=== PATIENT | male | born 2005 | race Two or more races ===

== ENCOUNTER 2024-03-17 04:12 | Emergency (ER) | payer BC, MEDICAID, SELFPAY ==
[2024-03-17 04:16] VITALS: PULSE 87; RESP 16; O2SAT 100; BMI 43.8
--- NOTE | 2024-03-17 04:17 | EKG_ITS ---
[facility] Test Date: 2024-03-17 Pat Name: CARMENZA HOPSON Department: Room: - Gender: Male [employer]: : 2005 Requested By: Shan Gaming Order Number: [id number] Reading MD: Shan Gaming Measurements Intervals [place] Rate: 82 P: 35 [place]: 151 QRS: 57 QRSD: 95 T: 43 QT: 366 QTc: 428 Interpretive Statements SINUS RHYTHM NONSPECIFIC T-WAVE ABNORMALITY No previous ECG available for comparison /store/S0/[id number]
[2024-03-17 04:19] VITALS: BP 140/81; PULSE 84; RESP 18; TEMP 36.7; O2SAT 100
--- NOTE | 2024-03-17 04:48 | PD.EDRME ---
Rapid Medical Screening Exam RME Arrival date/time: 03/17/24 04:12 18M with history of anxiety and marijuana use (2 days ago) presents to ED with 1 day of SOB. Patient denies URI symptoms. Patient doesn't think this is due to his anxiety or drug use even though he states the shot he got last time really helped. It was Ativan. Chief Complaint: Anxiety Vital signs: Vital Signs Temperature 98.1 F 03/17/24 04:19 Pulse Rate 84 03/17/24 04:19 Respiratory Rate 18 03/17/24 04:19 Blood Pressure 140/81 H 03/17/24 04:19 Pulse Oximetry (%) 100 03/17/24 04:19 Oxygen Delivery Method Room Air 03/17/24 04:19
[2024-03-17] MEDS: DIAZEPAM 5 MG TABLET 10 MG PO (05:05)
--- NOTE | 2024-03-17 06:33 | PD.EDANX ---
ED Anxiety RME/HPI General Chief Complaint: Anxiety Stated Complaint: SOB Time Seen by Provider: 03/17/24 06:14 Arrival date/time: 03/17/24 04:12 18-year-old male with significant psychiatric history followed by psychiatrist and on multiple medications presents emergency department the same day he had an anxiety attack today Limitations: no limitations RME / HPI RME / HPI narrative: 03/17/24 04:12 18M with history of anxiety and marijuana use (2 days ago) presents to ED with 1 day of SOB. Patient denies URI symptoms. Patient doesn't think this is due to his anxiety or drug use even though he states the shot he got last time really helped. It was Ativan. Related Data Previous Rx's ?Medication ?Instructions ?Recorded hydroxyzine HCl 50 mg tablet 50 mg PO Q6H PRN anxiety #15 tabs 04/14/23 ondansetron 4 mg disintegrating 4 mg PO Q6H PRN nausea and 04/14/23 tablet vomiting #10 tabs Allergies Allergy/AdvReac Type Severity Reaction Status Date / Time ciprofloxacin [From Cipro] Allergy Verified 04/14/23 00:26 Review of Systems Review of Systems Systems Reviewed: All systems reviewed, normal except as documented Constitutional Constitutional: Reports system reviewed and no additional complaints, except as documented, Denies fever(s) and Denies headache(s) Eyes Eyes: Reports system reviewed and no additional complaints, except as documented and Denies blurry vision ENT Ears, Nose, Mouth, and Throat: Reports system reviewed and no additional complaints, except as documented, Denies headache(s), Denies nasal congestion and Denies nasal discharge Cardiovascular Cardiovascular: Reports system reviewed and no additional complaints, except as documented, Denies chest pain and Denies dyspnea Respiratory Respiratory: Reports system reviewed and no additional complaints, except as documented, Denies chest congestion, Denies cough and Denies dyspnea Gastrointestinal Gastrointestinal: Reports system reviewed and no additional complaints, except as documented and Denies abdominal pain Integumentary/Breasts Skin/Breast: Reports system reviewed and no additional complaints, except as documented and Denies rash Neurologic Neurologic: Reports system reviewed and no additional complaints, except as documented, Reports as per HPI and Denies headache(s) Psychiatric Psychiatric: Reports system reviewed and no additional complaints, except as documented, Reports anxiety, Denies homicidal ideation and Denies suicidal ideation Past Medical History Past Medical History CARDIAC: Negative Cardiac Disorders PSYCHO/SOCIAL: Positive Depression and Anxiety; Negative Recreational Drug Use Social History SMOKING STATUS: Unknown if ever smoked ED Exam General Limitations: Present no limitations General appearance: Present alert and in no apparent distress Head Head exam: Present atraumatic Eye Eye exam: Present normal appearance, PERRL and EOMI ENT ENT exam: Present normal exam, normal oropharynx and mucous membranes moist Neck Neck exam: Present normal inspection, full ROM and trachea midline Chest Chest inspection: Present normal inspection and symmetric chest wall rise Respiratory Respiratory exam: Present normal lung sounds bilaterally Cardiovascular Cardiovascular exam: Present regular rate, normal rhythm and normal heart sounds Abdominal Exam Abdominal exam: Present soft and normal bowel sounds Extremities Exam Extremities exam: Present normal inspection and full ROM Back Exam Back exam: Present normal inspection and full ROM Neurological Exam Neurological exam: Present alert, oriented X3 and CN II-XII intact Psychiatric Psychiatric exam: Present normal affect and normal mood Skin Skin exam: Present warm, dry, intact and normal color Course Quality Measures none Orders Category Date Time Status EKG (ED ONLY) *Do not use* NOW Care 03/17/24 04:17 Completed EKG (ED Only) Stat Exams 03/17/24 04:17 Draft Diazepam [Valium] Med 03/17/24 04:48 Discontinued 10 mg PO X1 ONE Vital Signs Vital signs: Vital Signs Temperature 98.1 F 03/17/24 04:19 Pulse Rate 84 03/17/24 04:19 Respiratory Rate 18 03/17/24 04:19 Blood Pressure 140/81 H 03/17/24 04:19 Pulse Oximetry (%) 100 03/17/24 04:19 Oxygen Delivery Method Room Air 03/17/24 04:19 O2 saturation 100% room air within the limits Procedures -ED EKG Interpretation #1: Date of EK03/17/24 Time of EK:44 Rate: 82 Interpretation: Interpreted by me EKG Impression: Normal sinus rhythm, No acute ST-T changes, No ectopy, No ischemic changes, Normal QRS, Normal intervals and Normal axis Anxiety MDM Narrative MDM Narrative: 18-year-old male with significant psychiatric history followed by psychiatrist and on multiple medications presents emergency department the same day he had an anxiety attack today On exam patient well-appearing patient does not appear ill or toxic in no acute distress Patient reports no chest pain no shortness of breath EKG obtained by my colleague but is unremarkable Patient was given Valium At the time of reevaluation patient reports anxiety has passed Patient discharged home in no distress to follow-up with primary care doctor in the next 24 to 48 hours and for any worsening symptoms to return to the ER immediately Patient data External records reviewed:: [facility] previous records Clinical information provided by:: patient Social determinants that could affect healthcare access:: none Patient has the following chronic illnesses:: None How is presenting disease/condition affected by chronic disease/condition?: no chronic disease Evaluation data The following diagnostics were reviewed and interpreted by me:: EKG tracing(s) Lab and/or radiology exams considered but not ordered:: EKG obtained Interpretation Summary: Reviewed by me Medications / Prescriptions Medications or Prescriptions considered but not ordered:: Given Medication administrations:: Medication Administration History Discontinued Medications Diazepam (Diazepam 5 Mg Tablet) 10 mg PO X1 ONE Stop: 03/17/24 04:49 Last Admin: 03/17/24 05:05 Dose: 10 mg Documented By: EE Given Consultations Consultation(s) initiated? (list below): No Diagnosis Differential diagnosis anxiety: hyperventilation, panic disorder and acute anxiety Most likely diagnosis given after review of the tests above:: Anxiety Admission Indicated Admission indicated?: not indicated Admission Request Was there a request for admission?: No Disposition Plan Disposition Plan: Discharge Discharge Attestation Discharge Attestation: The patient and all family members were given an opportunity to ask questions and understood the discharge instructions. Discharge instructions specifically effects, indications for sooner follow up or return to the emergency department, and the expected course of current diagnosis. Patient condition: Stable Discharge Plan Plan Patient Disposition: HOME (Self Care) Disposition Comment: Stable Prescriptions/Referrals Prescriptions/Med Rec: No Action hydroxyzine HCl 50 mg tablet 50 mg PO Q6H PRN (Reason: anxiety) Qty: 15 0RF ondansetron 4 mg tablet,disintegrating 4 mg PO Q6H PRN (Reason: nausea and vomiting) Qty: 10 0RF Problem List Clinical Impression: Acute anxiety Patient/Caregiver Discharge Instructions Education Materials: ED Anxiety Reaction Additional Instructions: Please follow up with your primary care doctor in the next 24-48hrs for any worsening symptoms return here immediately Print Language: Kazakh Stand Alone Forms: Gillian Award Info., Patient Portal Info Letter PA/LEO Supervising Physician THERESA/LEO Supervising Physician: Dr. Austin
[2024-03-17 06:55] VITALS: BP 135/67; PULSE 78; RESP 19; TEMP 36.7; O2SAT 99
== END 2024-03-17 06:58 | disposition home or self-care (01) ==
LOC: SERX 06:46
PROVIDERS: Emergency Provider Emergency Medicine
DX: F41.9 Anxiety disorder, unspecified (principal); R94.31 Abnormal electrocardiogram [ECG] [EKG]
CPT/HCPCS: 93005; 99283; A9270

== ENCOUNTER 2024-05-08 01:48 | Emergency (ER) | payer MEDICAID, SELFPAY ==
[2024-05-08 02:05] VITALS: BP 145/86; RESP 18; TEMP 36.7; O2SAT 99
[2024-05-08 02:07] VITALS: PULSE 86; RESP 18; O2SAT 98
[2024-05-08 02:19] VITALS: PULSE 80
[2024-05-08 02:26] VITALS: BMI 34.8
--- NOTE | 2024-05-08 02:26 | EDNOTE_ITS ---
ED Arrhythmia Palp. RME/HPI General Chief Complaint: Arrhythmia/Palpitations Stated Complaint: POSSIBLE OVERDOSE Time Seen by Provider: 05/08/24 01:56 Arrival date/time: 05/08/24 01:48 RME / HPI RME / HPI narrative: Dr. Lamb?s Main ED Evaluation: 18yo female with a history of anxiety BIBA from home presents to the ED for a chief complaint of palpitations. Patient reports associated shortness of breath and shakiness, reporting this is his 4th episode in the last one year. He states he took 5 tablets of Buspar 15mg to try to alleviate his symptoms, but it didn't work, so he came in for evaluation. He denies any chronic diarrhea, hair loss, dry skin or any other associated symptoms. Related Data Previous Rx's ?Medication ?Instructions ?Recorded hydroxyzine HCl 50 mg tablet 50 mg PO Q6H PRN anxiety #15 tabs 04/14/23 ondansetron 4 mg disintegrating 4 mg PO Q6H PRN nausea and 04/14/23 tablet vomiting #10 tabs Allergies Allergy/AdvReac Type Severity Reaction Status Date / Time ciprofloxacin (From Cipro) Allergy Verified 04/14/23 00:26 Review of Systems Review of Systems Systems Reviewed: All systems reviewed, normal except as documented Narrative Review of Systems: Gen: No fever, no chills, no weight loss EYES: No discharge, no visual changes, no pain HEENT: No ear pain, no congestion, no sore throat PULM: + shortness of breath, no cough, no congestion CV: No chest pain, no dyspnea on exertion, + palpitations GI: No nausea, no vomiting, no diarrhea, no pain, no constipation : No frequency, no urgency, no dysuria Musc/skel: No joint pain, no back pain Skin: No rash. Warm and dry. Psyc: No hallucinations, no depression Heme/Lymph: No easy bleeding or bruising tendencies Neuro: No weakness, no headache ED Exam Narrative Physical exam: GENERAL APPEARANCE: alert and oriented x 4, well-developed, well-nourished, no acute distress VITALS: All vitals were reviewed and the pulse ox is 99% on room air, which is normal according to my interpretation. HEENT: normocephalic, atraumatic NECK: supple LUNGS: no respiratory distress, normal effort HEART: good peripheral perfusion ABDOMEN: non distended EXTREMITIES: atraumatic NEUROLOGIC: awake; alert and oriented x4; cranial nerves II-XII grossly intact PSYCHIATRIC: anxious mood and affect SKIN: warm, dry, normal color; no rashes Course Quality Measures none Reevaluation(s) Reevaluation #1: Patient states he feels significantly better. Discussed results with the patient. Patient is stable to be discharged home. Time: 04:30 Vital Signs Vital signs: Vital Signs Temperature 98.0 F 05/08/24 02:05 Respiratory Rate 18 05/08/24 02:05 Blood Pressure 145/86 H 05/08/24 02:05 Pulse Oximetry (%) 99 05/08/24 02:05 Oxygen Delivery Method Room Air 05/08/24 02:05 Arrhythmia/Palpitations MDM Narrative MDM Narrative:: Scribe Attestation: 05/08/24 - Delores Kennedy am scribing for and in the presence of Dr. Lamb. Patient data External records reviewed:: [facility] previous records (Per chart review, patient was seen here on 03/17/24 for acute anxiety.) Clinical information provided by:: patient Social determinants that could affect healthcare access:: mental health Patient has the following chronic illnesses:: anxiety How is presenting disease/condition affected by chronic disease/condition?: caused by Evaluation data The following diagnostics were reviewed and interpreted by me:: lab results and EKG tracing(s) Lab and/or radiology exams considered but not ordered:: none Interpretation Summary: CBC is normal, Potassium is 3.3, TSH and Free T4 are normal, according to my interpretation. EKG done at 0331, NSR, rate of 70, normal axis, no ectopy, no acute ischemia, according to my interpretation. Medications / Prescriptions Medications or Prescriptions considered but not ordered:: none Medication administrations:: see above Consultations Consultation(s) initiated? (list below): No Diagnosis Differential diagnosis arrhythmia/palpitations: other (panic disorder, anxiety reaction, hyperthyroidism, benzodiazepine withdrawal, alcohol withdrawal) Most likely diagnosis given after review of the tests above:: see below Admission Indicated Admission indicated?: not indicated Admission Request Was there a request for admission?: No Disposition Plan Disposition Plan: Discharge Discharge Attestation Discharge Attestation: The patient and all family members were given an opportunity to ask questions and understood the discharge instructions. Discharge instructions specifically effects, indications for sooner follow up or return to the emergency department, and the expected course of current diagnosis. Patient condition: Stable Discharge Plan Plan Patient Disposition: HOME (Self Care) Disposition Comment: Stable for discharge Patient condition on transfer: Stable Prescriptions/Referrals Prescriptions/Med Rec: No Action hydroxyzine HCl 50 mg tablet 50 mg PO Q6H PRN (Reason: anxiety) Qty: 15 0RF ondansetron 4 mg tablet,disintegrating 4 mg PO Q6H PRN (Reason: nausea and vomiting) Qty: 10 0RF Referrals: Tommie Caballero DO [Referring Provider] - In 1 week No Primary/Family,Physician [Primary Care Provider] - In 1 week Problem List Clinical Impression: Anxiety attack Patient/Caregiver Discharge Instructions Discharge Activity: activity as tolerated Education Materials: Journaling for Mental Health, Your Body's Response to Anxiety, Anxiety Disorders Tx Therapy, Understanding Anxiety Disorders, ED Panic Attack Additional Instructions: Please return to the emergency department for any worsening or any further medical problems Otherwise you should follow-up with your primary care doctor within the next several days When you see your primary care doctor next, you should ask him about starting an SSRI. This is a family of medicines that are sometimes used to treat anxiety di sorder. Print Language: Angolan Stand Alone Forms: Gillian Award Info., Patient Portal Info Letter
--- NOTE | 2024-05-08 02:28 | EKG_ITS ---
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
[2024-05-08] MEDS: LORazepam 2 MG/ML VIAL IVP (02:42)
[2024-05-08 03:00] LABS: Basophils % (Auto) 1 % (0-2.5); Eosinophils # (Auto) 0.1 Thou/mm3 (0.0-0.5); Eosinophils % (Auto) 2 % (0-10); Hematocrit 42.1 % (41.0-53.0); Hemoglobin 14.8 g/dL (13.5-16.0); Immature Granulocytes % (Auto) 0 % (0-0); Immature Granulocytes Auto 0.02 Thou/mm3 (0.00-0.00); Lymphocytes # (Auto) 2.6 Thou/mm3 (1.0-5.0); Lymphocytes % (Auto) 42 % (10-50); Mean Corpuscular HGB Conc 35.2 g/dl (31.0-37.0); Mean Corpuscular Hemoglobin 29.2 pg (25.0-35.0); Mean Corpuscular Volume 83 fL (80-100); Monocytes # (Auto) 0.5 Thou/mm3 (0.0-0.8); Monocytes % (Auto) 9 % (0-12); Neutrophils # (Auto) 2.8 Thou/mm3 (1.8-7.7); Neutrophils % (Auto) 46 % (37-80); Nucleated Red Blood Cell % 0 /100 WBC (0); Platelet Count 203 Thou/mm3 (140-440); RDW Standard Deviation 42.5 fL (35.1-43.9); Red Blood Count 5.06 Miln/mm3 (4.50-5.90); White Blood Count 6.1 Thou/mm3 (4.5-11.0)
[2024-05-08 03:15] VITALS: BP 122/50; PULSE 70; RESP 18; TEMP 36.8; O2SAT 99
[2024-05-08 03:15] LABS: Alanine Aminotransferase 47 U/L (10-49); Albumin, Serum 4.7 gm/dL (3.5-5.0); Albumin/Globulin Ratio 1.6 (1.2-2.2); Alkaline Phosphatase 83 U/L (46-116); Anion Gap 8 (7-16); Aspartate Amino Transferase 24 U/L (0-34); BUN/Creatinine Ratio 15 Ratio (12-20); Bilirubin,Total 0.8 mg/dL (0.3-1.2); Blood Urea Nitrogen 16 mg/dL (9-23); Calcium 9.7 mg/dL (8.3-10.6); Calcium (Corrected) 9.7 mg/dL (8.5-10.1); Carbon Dioxide 26.1 mMol/L (20.0-31.0); Chloride 107 mMol/L (98-107); Creatinine (Component) 1.1 mg/dL (0.6-1.3); Estimated Creatinine Clearance 138.3 mL/min (>60); Free T4 (Free Thyroxine) 1.41 ng/dL (0.89-1.76); Globulin 2.9 gm/dL (2.3-3.5); Glucose 103 mg/dL (74-106); Osmolality,Calculated 282 (275-295); Potassium 3.3 mMol/L (3.4-5.1); Sodium 141 mMol/L (136-145); Thyroid Stimulating Hormone 1.97 uIU/mL (0.55-4.78); Total Protein 7.6 gm/dL (5.7-8.2); eGFR > 60 See Note
--- NOTE | 2024-05-08 03:41 | PC.NURSE ---
Poison control contacted. Suggest 6hr monitoring. risk of sz, agitation. Dose, Low risk for harm Dr Lamb notified. .
== END 2024-05-08 06:49 | disposition home or self-care (01) ==
PROVIDERS: Emergency Provider Emergency Medicine
DX: F41.0 Panic disorder [episodic paroxysmal anxiety] (principal)
CPT/HCPCS: 36415; 80053; 84439; 84443; 85025; 93005; 96374; 99284; J2060